=== PATIENT | male | born 1995 ===

== ENCOUNTER 2023-03-03 01:25 | Day surgery (SDC) | payer BC | END 2023-03-03 22:59 | disposition home or self-care (01) | LOC: WOUND 01:25 | DX: L73.2 Hidradenitis suppurativa (principal); L02.419 Cutaneous abscess of limb, unspecified | CPT/HCPCS: A9270; G0463 ==

== ENCOUNTER 2023-03-09 01:56 | Day surgery (SDC) | payer BC | END 2023-03-09 22:53 | disposition home or self-care (01) | LOC: WOUND 01:56 | DX: L73.2 Hidradenitis suppurativa (principal); L02.419 Cutaneous abscess of limb, unspecified | CPT/HCPCS: A9270; G0463 ==

== ENCOUNTER 2023-03-17 03:04 | Day surgery (SDC) | payer BC | END 2023-03-17 22:51 | disposition home or self-care (01) | LOC: WOUND 03:04 | DX: L73.2 Hidradenitis suppurativa (principal); L02.419 Cutaneous abscess of limb, unspecified | CPT/HCPCS: A9270 ==

== ENCOUNTER 2023-03-24 04:04 | Day surgery (SDC) | payer BC | END 2023-03-24 23:03 | disposition home or self-care (01) | LOC: WOUND 04:04 | DX: L73.2 Hidradenitis suppurativa (principal); L02.412 Cutaneous abscess of left axilla | CPT/HCPCS: A9270; G0463 ==

== ENCOUNTER 2023-04-01 01:34 | Day surgery (SDC) | payer BC | END 2023-04-01 23:13 | disposition home or self-care (01) | LOC: WOUND 01:34 | DX: L73.2 Hidradenitis suppurativa (principal); L02.419 Cutaneous abscess of limb, unspecified | CPT/HCPCS: A9270; G0463 ==

== ENCOUNTER 2023-04-14 04:02 | Day surgery (SDC) | payer BC | END 2023-04-14 23:21 | disposition home or self-care (01) | LOC: WOUND 04:02 | DX: L73.2 Hidradenitis suppurativa (principal); L02.419 Cutaneous abscess of limb, unspecified | CPT/HCPCS: G0463 ==

== ENCOUNTER 2023-04-21 00:41 | Day surgery (SDC) | payer BC | END 2023-04-21 22:50 | disposition home or self-care (01) | LOC: WOUND 00:41 | DX: L73.2 Hidradenitis suppurativa (principal); L02.419 Cutaneous abscess of limb, unspecified | CPT/HCPCS: A9270 ==

== ENCOUNTER 2023-05-04 02:04 | Day surgery (SDC) | payer BC | END 2023-05-04 23:02 | disposition home or self-care (01) | LOC: WOUND 02:04 | DX: L73.2 Hidradenitis suppurativa (principal); L02.419 Cutaneous abscess of limb, unspecified | CPT/HCPCS: A9270 ==

== ENCOUNTER 2023-05-13 00:39 | Day surgery (SDC) | payer BC | END 2023-05-13 22:48 | disposition home or self-care (01) | LOC: WOUND 00:39 | DX: L73.2 Hidradenitis suppurativa (principal); L02.419 Cutaneous abscess of limb, unspecified | CPT/HCPCS: 87070; 87077; 87186; 87205; A9270 ==

== ENCOUNTER 2023-05-20 03:19 | Day surgery (SDC) | payer BC | END 2023-05-20 22:41 | disposition home or self-care (01) | LOC: WOUND 03:19 | DX: L73.2 Hidradenitis suppurativa (principal); L02.419 Cutaneous abscess of limb, unspecified | CPT/HCPCS: G0463 ==

== ENCOUNTER 2023-06-01 02:20 | Day surgery (SDC) | payer BC | END 2023-06-01 23:52 | disposition home or self-care (01) | LOC: WOUND 02:20 | DX: L73.2 Hidradenitis suppurativa (principal); L02.419 Cutaneous abscess of limb, unspecified | CPT/HCPCS: A9270; G0463 ==

== ENCOUNTER 2023-06-15 05:02 | Day surgery (SDC) | payer BC | END 2023-06-15 23:09 | disposition home or self-care (01) | LOC: WOUND 05:02 | DX: L73.2 Hidradenitis suppurativa (principal); L02.419 Cutaneous abscess of limb, unspecified | CPT/HCPCS: A9270 ==

== ENCOUNTER 2023-06-22 02:31 | Day surgery (SDC) | payer BC | END 2023-06-22 22:51 | disposition home or self-care (01) | LOC: WOUND 02:31 | DX: L73.2 Hidradenitis suppurativa (principal); L02.419 Cutaneous abscess of limb, unspecified | CPT/HCPCS: A9270; G0463 ==

== ENCOUNTER 2023-06-29 04:42 | Day surgery (SDC) | payer BC | END 2023-06-29 23:31 | disposition home or self-care (01) | LOC: WOUND 04:42 | DX: L73.2 Hidradenitis suppurativa (principal); L02.419 Cutaneous abscess of limb, unspecified | CPT/HCPCS: A9270; G0463 ==

== ENCOUNTER 2023-07-13 06:09 | Day surgery (SDC) | payer BC | END 2023-07-13 23:03 | disposition home or self-care (01) | LOC: WOUND 06:09 | DX: L73.2 Hidradenitis suppurativa (principal); L02.419 Cutaneous abscess of limb, unspecified | CPT/HCPCS: A9270; G0463 ==

== ENCOUNTER 2023-07-27 01:52 | Day surgery (SDC) | payer BC | END 2023-07-27 22:38 | disposition home or self-care (01) | LOC: WOUND 01:52 | DX: L73.2 Hidradenitis suppurativa (principal); L02.419 Cutaneous abscess of limb, unspecified | CPT/HCPCS: A9270 ==

== ENCOUNTER 2023-08-15 00:26 | Day surgery (SDC) | payer BC | END 2023-08-15 22:55 | disposition home or self-care (01) | LOC: WOUND 00:26 | DX: L73.2 Hidradenitis suppurativa (principal); L02.419 Cutaneous abscess of limb, unspecified | CPT/HCPCS: A9270; G0463 ==

== ENCOUNTER 2023-09-07 01:40 | Day surgery (SDC) | payer BC | END 2023-09-07 23:24 | disposition home or self-care (01) | LOC: WOUND 01:40 | DX: L73.2 Hidradenitis suppurativa (principal); L02.419 Cutaneous abscess of limb, unspecified | CPT/HCPCS: A9270; G0463 ==

== ENCOUNTER 2023-09-21 02:50 | Day surgery (SDC) | payer BC | END 2023-09-21 23:05 | disposition home or self-care (01) | LOC: WOUND 02:50 | DX: L73.2 Hidradenitis suppurativa (principal); L02.419 Cutaneous abscess of limb, unspecified | CPT/HCPCS: A9270; G0463 ==

== ENCOUNTER 2023-10-05 01:28 | Day surgery (SDC) | payer BC ==
[2023-10-05] MEDS ORDERED: Lidocaine HCl 4% Cream 5 GM ONE (08:47)
== END 2023-10-05 23:35 | disposition home or self-care (01) ==
LOC: WOUND 01:28
DX: L73.2 Hidradenitis suppurativa (principal); L02.419 Cutaneous abscess of limb, unspecified
CPT/HCPCS: A9270; G0463

== ENCOUNTER 2023-10-19 05:25 | Day surgery (SDC) | payer BC ==
[2023-10-19] MEDS ORDERED: Lidocaine HCl 4% Cream 5 GM ONE (08:41)
== END 2023-10-19 23:10 | disposition home or self-care (01) ==
LOC: WOUND 05:25
DX: L73.2 Hidradenitis suppurativa (principal); L02.419 Cutaneous abscess of limb, unspecified
CPT/HCPCS: A6213; A9270; G0463